=== PATIENT | male | born 1980 | race Native Hawaiian/Other Pacific Islander ===

== ENCOUNTER 2017-10-09 09:27 | Outpatient (CLI) | payer BC ==
[2017-10-09 09:51] LABS: PLATELET COUNT 144 K/uL (142-355)
[2017-10-09 10:17] LABS: POTASSIUM 4.2 mmol/L (3.6-5.2)
== END 2017-10-09 22:20 | disposition home or self-care (01) ==
LOC: LABW 09:27
PROVIDERS: Internal Medicine
DX: G25.81 Restless legs syndrome (principal)
CPT/HCPCS: 36415; 80053; 82607; 82728; 82747; 83540; 83735; 84439; 84443; 84550; 85027; 85651

== ENCOUNTER 2018-06-18 10:25 | Outpatient (CLI) | payer BC | END 2018-06-18 20:13 | disposition home or self-care (01) | LOC: LABW 10:25 | DX: E29.1 Testicular hypofunction (principal) | CPT/HCPCS: 84153; 84402; 84403 ==

== ENCOUNTER 2018-10-14 11:05 | Day surgery (SDC) | payer BC ==
[~2018-10-14] VITALS: Ht 30.5 cm; Wt 0.5 kg
[2018-10-14 12:43] LABS: PLATELET COUNT 169 K/uL (142-355); POTASSIUM 4.5 mmol/L (3.6-5.2)
== END 2018-10-14 17:59 | disposition home or self-care (01) ==
LOC: OR 11:05
PROVIDERS: Internal Medicine Gastroenterology
PROC: 0DB38ZZ Excision of Lower Esophagus, Via Natural or Artificial Opening Endoscopic (ICD-10-PCS; principal; 2018-10-14)
PROC: 0DB68ZZ Excision of Stomach, Via Natural or Artificial Opening Endoscopic (ICD-10-PCS; 2018-10-14)
DX: K21.0 Gastro-esophageal reflux disease with esophagitis (principal); K44.9 Diaphragmatic hernia without obstruction or gangrene; K29.00 Acute gastritis without bleeding; R10.13 Epigastric pain; R11.0 Nausea
CPT/HCPCS: 80053; 85027; J2001; J2250; J2405

== ENCOUNTER 2019-04-13 14:43 | Outpatient (CLI) | payer BC | END 2019-04-13 23:21 | disposition home or self-care (01) | LOC: RAD 14:43 | DX: M54.5 Low back pain (principal) ==

== ENCOUNTER 2020-12-25 16:09 | Outpatient (CLI) | payer BC | END 2020-12-25 19:57 | disposition home or self-care (01) | LOC: LABW 16:09 | PROVIDERS: ATTEND Internal Medicine | DX: R19.7 Diarrhea, unspecified (principal) | CPT/HCPCS: 82272; 83630; 87015; 87045; 87206; 87324; 87328; 87329; 87449; 87507; 87899 ==